=== PATIENT | female | born 1990 | race Caucasian/White ===

== ENCOUNTER 2016-10-17 06:58 | Inpatient (IN) | payer OTHER ==
[~2016-10-17] VITALS: Ht 147.3 cm; Wt 73.9 kg
[2016-10-17] MEDS ORDERED: Lactated Ringer's 1,000 ML IV PRN (07:38)
[2016-10-17] MEDS ORDERED: Sodium Chloride LOK Flush 10 mL Syringe IVFLUSH PRN (07:40)
[2016-10-17] MEDS ORDERED: Carboprost 250 mCg/mL Inj IM PRN (07:40)
[2016-10-17] MEDS ORDERED: Ondansetron 2 mg/mL 2 mL Inj IVPUSH PRN (07:40)
[2016-10-17] MEDS ORDERED: Oxytocin 30 Units/500 mL LR 30 UNITS in IV Premix 1 EACH IV PRN (07:40)
[2016-10-17] MEDS ORDERED: Oxytocin 10 Unit/mL Inj IM PRN (07:40)
[2016-10-17] MEDS ORDERED: diphenhydrAMINE 50 mg Capsule PO PRN (07:40)
[2016-10-17] MEDS ORDERED: Methylergonovine 0.2 mg/mL Inj IM PRN (07:40)
[2016-10-17] MEDS ORDERED: Hemorrhage Kit, Post Partum XX ONE (07:40)
--- NOTE | 2016-10-17 09:11 | PCM.HPOB ---
Subjective Date of Service: Oct 17, 2016 Referring Provider: Admitting Physician: Smita Gandhi MD Primary Care Physician: Jose Raul Jean MD Attending Physician: Smita Gandhi MD Chief Complaint Induction of Labor History of Present History of Present Illness Ms. Scott is a 25 year old at 37 weeks 5 days with NILSA of 11/03/2016 Presents today for induction of labor secondary to induced hypertension and gestational diabetes. Pt is a transfer of care form [place]. Pt has a pertenent past medical history of asthma for which she takes albuterol occasionally and depression for which she used to take Lexapro. Pt states that she has no history of an abnormal PAP, no history of STD or herpes and has no lesions currently. Pt Pt her weight was a little over 7lbs and father of baby (also present in the room) states his weight was 5 pounds. Pt has no reservations against receiving blood products. Blood type is O positive, and GBS negative. At time of dictation Pt 0.0cm dilated, 0%effaced, -1 station. OB History: (1), Para (09) Obstetrical Complications: Gestational Diabetes, Gestational Hypertension Past Medical History Medical History: Per out-patient records Medical history positive for: Depression D (Rh) sensitized Pulmonary (TB, asthma) Seasonal allergies Per out-patient records Infection history negative for: Living with someone with TB or exposed to TB Patient or partner history of genital herpes Rash or viral illness since last menstrual period Hepatitis B, C STI Gonorrhea Chlamydia HPV HIV Syphilis Surgical History: Per Pt she underwent a sinus drainage surgery. Hx Tobacco Use: No Smoking Status: Never Smoker Hx Alcohol Use: No Hx Substance Use: No Past Family History Living Arrangement: with Family Genetic Screening/Counseling Genetic Screening/Counseling: Negative Review of Systems Constitutional: Y: Fever, Weakness Eyes: Denies: Blurred Vision, Double Vision Cardiovascular: Denies: Chest Pain, Palpitations Respiratory: Denies: Cough Gastrointestinal: Denies: Nausea, Vomiting Neurological: Denies: Change in Speech, Dizziness, Numbness, Seizures, Weakness Medications Home medications Albuterol, vitamin Allergy Coded Allergies: No Known Allergies (Unverified , 10/17/16) Exam Vital Signs BP 125/89, HR 93, RR 16, temp 36.9 Exam FHR 130, moderate variability, category 1 tracing. no decelerations, 15x15 accelerations Constitutional: Well-developed, Well-nourished HEENT: Atraumatic, EOMI Lungs: Clear to Auscultation, Normal Air Movement Heart: Exam Unremarkable, Regular Rate/Rhythm Abdomen: Gravid Extremities: No Edema Neurological/Psychiatric: Alert, Oriented X3, Cooperative Neuro: Grossly Neurologically Intact Labs/Diagnostics Maternal Blood Type: O (positive) Hx Rho(D) Immune Globulin: Yes Antibody Screen: negative Group B Strep Results: Negative Rubella: Immune Lab History: Negative for: Hx Gonorrhea, Hx HIV, Hx Herpes, Hx Syphilis Additional Information No information avbailable for Hep C, HIV status, varicella immunity, TSH OB Intrapartum Assessment/Plan Assessment 25 female scheduled induction of labor secondary to PIH and gestational diabetes Problems: (1) Elective induction of labor planned Plan: Continue supportive care, oxytocin given, expectant management. Anticipate vaginal delivery later today or tonight. Status: Acute (2) Gestational diabetes Plan: Pt had not been monitoring blood sugars at home. Will continue to monitor Status: Acute ICD Code: O24.419 (3) 37 weeks gestation of Plan: continue supportive care Status: Acute ICD Code: Z3A.37 (4) Gestational hypertension Permanent Comment: other dx made Last Edited By: Cuco Morel MD on Oct 17, 2016 14:50 Qualifiers: Trimester: unspecified trimester Qualified Code: O13.9 - Gestational [ -induced] hypertension without significant proteinuria, unspecified trimester Plan: Currently hemodynamically stable. Will continue to monitor Status: Acute ICD Code: O13.9 Pain Evaluation: Adequate Pain Control Attending Statement The patient was seen and examined together with Dr. Durbin on 10/17/2016 and I agree with the history, exam and plan as outlined in the note above. Will admit for IOL for GHTN and GDMA1 at 37 weeks gestation. Cervix is closed. Will start with cytotec for cervical ripening. IOL discussed with patient and questions answered./ MD NOEMI Cruz GILES A DO Oct 17, 2016 09:11 Cuco Morel MD Oct 17, 2016 15:11
[2016-10-17] MEDS: Misoprostol 25 mCg/0.25 Tablet VAGINAL SCH ×2 (09:25→13:30)
[2016-10-17 09:34] LABS: Mean Corpuscular Hemoglobin 31.5 pg (27.0-35.0); Mean Corpuscular Volume 91.1 fL (81-100)
[2016-10-17] MEDS ORDERED: PNV91TAB3 PO (10:46)
[2016-10-17] MEDS: Lactated Ringer's 1,000 ML IV SCH ×2 (13:57→23:38)
--- NOTE | 2016-10-17 15:22 | PCM.PNOBIP ---
Subjective Date of Service Oct 17, 2016 Visit History Helen is a 25 y/o G1 at 37w4d with EDC of 11/03/2016 by sure LMP who is admitted today for IOL for GHTN with also complicated by GDMA1 and mild intermittent asthma. Subjective Received 1 dose of cytotec 25mcg vaginal at 9:30am with closed cervix and at 1: 30pm cervix still closed and a second dose placed. Patient continues to be comfortable without complaints. Group B Strep Results: Negative Rubella: Immune Blood Type: O (positive) Labs Laboratory Tests Test 10/17/16 07:53 10/17/16 09:10 Urine Random Creatinine 90mg/dL (16-392) Urine Random Total Protein 52mg/dL (0-15) Urine Protein/Creatinine Ratio 0.58 White Blood Count 11.1th/mm3 (3.8-10.1) Red Blood Count 4.16mil/mm3 (3.90-5.20) Hemoglobin 13.1g/dL (12.0-15.6) Hematocrit 37.9% (35.0-46.0) Mean Corpuscular Volume 91.1fL (81-100) Mean Corpuscular Hemoglobin 31.5pg (27.0-35.0) Mean Corpuscular Hemoglobin Concent 34.6% (32.0-37.0) Red Cell Distribution Width 13.4% (12.3-15.4) Platelet Count 214bil/L (150-400) Sodium Level 135mEq/L (134-144) Potassium Level 4.3mEq/L (3.5-5.2) Chloride Level 100mEq/L (97-108) Carbon Dioxide Level 19mmol/L (18-29) Blood Urea Nitrogen 11mg/dL (6-20) Creatinine 0.77mg/dL (0.57-1.00) Estimat Glomerular Filtration Rate 133mL/min (>59) Glucose Level 95mg/dL (60-99) Calcium Level 9.2mg/dL (8.5-10.1) Total Bilirubin 0.2mg/dL (0.0-1.2) Aspartate Amino Transf (AST/SGOT) 20U/L (0-50) Alanine Aminotransferase (ALT/SGPT) 10U/L (0-32) Alkaline Phosphatase 127U/L (25-150) Total Protein 6.4g/dL (6.4-8.4) Albumin 3.5g/dL (3.4-5.0) Exam Vital Signs Vital Signs Contraction frequency in minutes: MVUs: Vital Signs: VS reviewed, stable (134/85 75 37.0) Heart Tracings Heart Tones Baseline 140 bpm Heart Rate Variability: Moderate Heart Rate Accelleration: Present Heart Rate Deceleration: Absent Heart Rate Category: I Tocometry/IUPC Contraction frequency in minutes:None Sterile Vaginal Exam Cervical Dilation: 0 cm Exam General: Alert, Oriented X3, Cooperative OB Intrapartum Assessment/Plan Assessment Helen is a 25 y/o G1 at 37w4d with EDC of 11/03/2016 by sure LMP who is admitted today for IOL for GHTN, but with elevated PA:CR urine she has preeclampsia without severe features. Serum creatinine is borderline on the high side of normal. Problems: (1) 37 weeks gestation of Status: Acute ICD Code: Z3A.37 (2) Pre-eclampsia affecting , antepartum Plan: IOL - second dose of cytotec given. BPs within normal limits. No severe features. Magnesium prophylaxis not currently indicated. Discussed dx of preeclampsia with patient. Will repeat labs Q12 hours - can reassess frequency of lab draws tomorrow am. No concerns with strip at this time. Status: Acute ICD Code: O14.90 Pain Evaluation: Adequate Pain Control Cuco Morel MD Oct 17, 2016 15:22
--- NOTE | 2016-10-17 19:23 | PCM.PNOBIP ---
Subjective Date of Service Oct 17, 2016 Delivery plan: Spontaneous Vaginal Delivery Visit History Helen is a 25 y/o G1 at 37w4d with EDC of 11/03/2016 by sure LMP who is admitted today for IOL for preeclampsia and complicated by GDMA1 and mild intermittent asthma. Subjective Received 2 doses of cytotec 25mcg vaginally, one at 9:30am, next at 1:30pm. Patient is still comfortable feeling some cramping. Group B Strep Results: Negative Rubella: Immune Blood Type: O (positive) Labs Laboratory Tests 10/17/16 09:10: White Blood Count 11.1, Red Blood Count 4.16, Hemoglobin 13.1, Hematocrit 37.9, Mean Corpuscular Volume 91.1, Mean Corpuscular Hemoglobin 31.5, Mean Corpuscular Hemoglobin Concent 34.6, Red Cell Distribution Width 13.4, Platelet Count 214 Exam Vital Signs Vital Signs Contraction frequency in minutes: MVUs: Vital Signs: VS reviewed, stable Heart Tracings Heart Tones Baseline bpm Heart Rate Category: I Tocometry/IUPC Contraction frequency in minutes: MVUs: Sterile Vaginal Exam Cervical Dilation: 1 cm Cervical Effacement: 50 % Station: -3 Exam General: Alert, Oriented X3, Cooperative OB Intrapartum Assessment/Plan Assessment Helen is a 25 y/o G1 at 37w4d with EDC of 11/03/2016 by sure LMP who is admitted today for IOL for preeclampsia and complicated by GDMA1 and mild intermittent asthma. Problems: (1) 37 weeks gestation of Status: Acute ICD Code: Z3A.37 (2) Pre-eclampsia affecting , antepartum Plan: -BPs elevated, but no need to treat. No signs of severe disease at this time. No magnesium currently indicated. -Cervical ripening balloon placed. Status: Acute ICD Code: O14.90 Pain Evaluation: Adequate Pain Control Cuco Morel MD Oct 17, 2016 19:23
[2016-10-17] MEDS: fentaNYL-PF 50 mCg/mL 2 mL Inj IVPUSH PRN ×3 (19:36→21:12)
[2016-10-17 22:36] LABS: Mean Corpuscular Hemoglobin 31.2 pg (27.0-35.0); Mean Corpuscular Volume 91.7 fL (81-100)
[2016-10-18] MEDS: Lactated Ringer's 1,000 ML IV SCH (02:29)
[2016-10-18 08:37] LABS: Mean Corpuscular Volume 91.3 fL (81-100)
--- NOTE | 2016-10-18 10:31 | PCM.PNOBIP ---
Subjective Date of Service Oct 18, 2016 Delivery plan: Spontaneous Vaginal Delivery Subjective 25 year old now at 37 weeks 5 days gestation with NILSA of 11/03/2016 was admitted to the [facility] October 17 2016 for induction of labor secondary to induced hypertension and gestational diabetes. Patient has no severe features of her preeclampsia at this time. Induction of labor has consisted of use of Cytotec and balloon catheter dilation. She is not experiencing headache, epigastric pain, or vision changes. Labs fingerstick glucose readings in the high 60's. Group B Strep Results: Negative Rubella: Immune Blood Type: O (positive) Labs Laboratory Tests 10/18/16 08:18: White Blood Count 16.9, Red Blood Count 4.16, Hemoglobin 12.9, Hematocrit 38.0, Mean Corpuscular Volume 91.3, Mean Corpuscular Hemoglobin 31.0, Mean Corpuscular Hemoglobin Concent 33.9, Red Cell Distribution Width 13.6, Platelet Count 218 Exam Vital Signs Vital Signs BP 139/81 HR 100 R 20 T 36.3 Vital Signs: VS reviewed, stable Heart Tracings Heart Tones Baseline 140 bpm Heart Rate Variability: Moderate Heart Rate Accelleration: Present Heart Rate Deceleration: Absent Heart Rate Category: I Tocometry/IUPC Contraction frequency in minutes: 6-9 Sterile Vaginal Exam Performed by Dr. Cuco Morel Cervical Dilation: 1 cm Cervical Effacement: 50 % Station: -3 Exam Abdomen: Fundus firm Extremities: Edema 1+ Lungs: Clear to Auscultation, Normal Air Movement Heart: Regular Rate/Rhythm, No Murmurs/Rubs/Gallops General: Alert, Oriented X3, Cooperative OB Intrapartum Assessment/Plan Assessment 25 year old now at 37 weeks 5 days gestation with NILSA of 11/03/2016 was admitted to the [facility] October 17 2016 for induction of labor secondary to induced hypertension and gestational diabetes. She has elevated creatinine for and an elevated protein creatinine ratio therefore preeclamptic without any severe features and not requiring magnesium at this time. Liver and Kidney function remain stable. Patient has had mild cervical changes with Cytotec and balloon dilation. Problems: (1) 37 weeks gestation of Status: Acute ICD Code: Z3A.37 (2) Pre-eclampsia affecting , antepartum Plan: -BPs elevated, but no need to treat. No signs of severe disease at this time. No magnesium currently indicated. -Cervical ripening balloon removed. -We will start Cervidil this morning to continue cervical ripening. Status: Acute ICD Code: O14.90 Intrapartum plan: Continue expected management Pain Evaluation: Adequate Pain Control Post plan: Continue routine post care SHERYL RADER DO Oct 18, 2016 09:52
[2016-10-18 22:59] LABS: Mean Corpuscular Volume 92.4 fL (81-100)
--- NOTE | 2016-10-19 07:53 | PCM.PNOBIP ---
Subjective Date of Service Oct 19, 2016 Delivery plan: Spontaneous Vaginal Delivery Subjective 25 year old now at 37 weeks 6 days gestation with NILSA of 11/03/2016 was admitted to the [facility] October 17 2016 for induction of labor secondary to induced hypertension and gestational diabetes. Patient has no severe features of her preeclampsia at this time. Induction of labor has consisted of use of Cytotec, balloon catheter dilation, and Cervidil. Cervidil was removed 10/18/16 at 21:16 cervical check at that time was 4 cm /80% effaced / -2 station, soft and posterior. She is not experiencing headache, epigastric pain, or vision changes. She is still ambulating occasionally. her contractions have spaced out and she has been feeling them less. Pain Management: IV Push Gastrointestinal: No N/V, Passing Flatus Activity: Ambulating Independently Group B Strep Results: Negative Rubella: Immune Blood Type: O (positive) RH Type: Positive Labs Laboratory Tests 10/18/16 22:45: White Blood Count 17.5, Red Blood Count 3.94, Hemoglobin 12.2, Hematocrit 36.4, Mean Corpuscular Volume 92.4, Mean Corpuscular Hemoglobin 31.0, Mean Corpuscular Hemoglobin Concent 33.5, Red Cell Distribution Width 13.7, Platelet Count 222 Exam Vital Signs Vital Signs Contraction frequency in minutes: MVUs: Vital Signs: VS reviewed, stable Heart Tracings Heart Tones Baseline 130 bpm Heart Rate Variability: Moderate Heart Rate Accelleration: Present Heart Rate Deceleration: Absent Heart Rate Category: I Tocometry/IUPC Contraction frequency in minutes: infrequent Sterile Vaginal Exam Cervical Dilation: 1 cm Cervical Effacement: 50 % Station: -3 Exam Abdomen: Fundus firm Extremities: Edema 1+ Lungs: Clear to Auscultation, Normal Air Movement Heart: Regular Rate/Rhythm, No Murmurs/Rubs/Gallops General: Alert, Oriented X3, Cooperative OB Intrapartum Assessment/Plan Assessment 25 year old now at 37 weeks 6 days gestation with NILSA of 11/03/2016 was admitted to the [facility] October 17 2016 for induction of labor secondary to induced hypertension and gestational diabetes. Patient has no severe features of her preeclampsia at this time. Patient doing well, pain well controlled. Problems: (1) 37 weeks gestation of Status: Acute ICD Code: Z3A.37 (2) Pre-eclampsia affecting , antepartum Plan: -BPs elevated, but no need to treat. No signs of severe disease at this time. No magnesium currently indicated. -Cervidil was removed last night. -Start Pitocin this morning to continue with induction of labor. Status: Acute ICD Code: O14.90 Intrapartum plan: Continue expected management Intrapartum Pain Management: May have epidural when desired, IV Fentanyl Pain Evaluation: Adequate Pain Control Post plan: Continue routine post care Attending Statement She is doing well this AM, induction on hold overnight due to nurse staffing issues. This AM her cervix is 4/90/-1, Pitocin started and SROM occurred this AM with return of clear fluid. Epidural was placed at her request. Difficulty tracing contractions was noted on tocometry so IUPC was placed with prolonged decel to 80's following this and with hypotension s/p epidural, FSE also placed. BP now WNL. Now FHT category 2: 140's/minimal to moderate variability/ occasional variable and rare late decelerations. Pitocin on at 4mu, decreased after prolonged deceleration. Contraction pattern irregular with coupling and tripling. Continue expectant management with position changes at this time. SHERYL RADER DO Oct 19, 2016 07:34 Smita Gandhi MD Oct 19, 2016 12:53
[2016-10-19] MEDS: Lactated Ringer's 1,000 ML IV SCH ×4 (08:06→23:19)
[2016-10-19 09:11] LABS: Mean Corpuscular Hemoglobin 31.3 pg (27.0-35.0)
[2016-10-19] MEDS ORDERED: fentaNYL 2 mCg/mL-Bupivicaine 0.125% 100 mL Premix EPIDURAL ONE (09:54)
[2016-10-19] MEDS ORDERED: Lactated Ringer's 500 ML IV PRN (09:57)
[2016-10-19] MEDS ORDERED: Lactated Ringer's 1,000 ML IV SCH ×2 (09:57→17:30)
[2016-10-19] MEDS ORDERED: Dexamethasone 4 mg/mL Inj IVPUSH PRN (10:00)
[2016-10-19] MEDS ORDERED: Phenylephrine 10,000 mCg/mL Inj IVPUSH PRN (10:00)
[2016-10-19] MEDS ORDERED: fentaNYL-PF 50 mCg/mL 2 mL Inj IVPUSH PRN (10:00)
[2016-10-19] MEDS ORDERED: Labetalol 5 mg/mL 4 mL Inj IV PRN (10:00)
[2016-10-19] MEDS ORDERED: EPHEDrine Sulfate 50 mg/mL Inj IVPUSH PRN ×2 (10:00→17:30)
[2016-10-19] MEDS ORDERED: MetoCLOpramide 5 mg/mL 2 mL Inj IVPUSH PRN (10:00)
[2016-10-19] MEDS ORDERED: HYDROmorphone 1 mg/mL Inj IVPUSH PRN (10:00)
[2016-10-19] MEDS ORDERED: Ondansetron 2 mg/mL 2 mL Inj IVPUSH PRN ×2 (10:00→17:30)
--- NOTE | 2016-10-19 10:00 | PCM.HPANE ---
Patient Data Surgeon Admitting Provider:Smita Gandhi MD Attending Provider:Smita Gandhi MD Primary Care Physician:Jose Raul Jean MD Other Provider:Ramona Carnes Anesthesia Reason for Visit Induction INDUCTION Ht/WT & BMI Body Mass Index Allergies Coded Allergies: No Known Allergies (Unverified , 10/17/16) Medications Hypertension Medication: No Home Meds Incl Beta Kishore: No Reported Medications Pnv95/Ferrous Fumarate/FA ( Caplet)28 Mg Iron-800 Mcg Tablet1 Each PO 10/17/16 History Hx of Heart Problems?: Yes Cardiovascular History: Positive for:: Hypertension Hx of Respiratory Problem?: No Hx of GI Problems?: Yes Gastrointestinal History: Positive for:: Heartburn Female Hx: Positive for:: Currently Hx Surgeries?: Yes Hx Alcohol Use: NoHx Substance Use: No Smoking Status: Never Smoker Stop/Bang Treated for Sleep Apnea?: No Do You Have a CPAP Machine?: No IRVING Risk Assessment: Low Risk, <3 Yes Risk Assessment Category Category 1A: Patient has history of documented sleep apnea, and HAS NOT received any narcotic, sedative or anesthesia administration during this stay. Category 1B: Patient has history of documented sleep apnea, and HAS received any narcotic , sedative or anesthesia administration during this stay Category 2: Patient has SUSPECTED Obstructive Sleep Apnea, and HAS received any narcotic , sedative or anesthesia administration during this stay. Category 3: Patient has SUSPECTED Obstructive Sleep Apnea and HAS NOT received narcotic, sedative or anesthesia administration during this stay. Category 4: Outpatient in Procedural Areas with known sleep apnea or who screen positive for High Risk via the STOP/BANG questionnaire. Exam Exam General Appearance: Oriented X3 HEENT/AIRWAY: MP 2 Lungs: Normal Air Movement Heart: Regular Rate/Rhythm Meds/Labs/Diagnostics Labs Test 10/17/16 07:53 10/19/16 08:50 Urine Random Creatinine 90mg/dL (16-392) Urine Random Total Protein 52mg/dL (0-15) Urine Protein/Creatinine Ratio 0.58 White Blood Count 16.2th/mm3 (3.8-10.1) Red Blood Count 3.86mil/mm3 (3.90-5.20) Hemoglobin 12.1g/dL (12.0-15.6) Hematocrit 35.9% (35.0-46.0) Mean Corpuscular Volume 93.0fL (81-100) Mean Corpuscular Hemoglobin 31.3pg (27.0-35.0) Mean Corpuscular Hemoglobin Concent 33.7% (32.0-37.0) Red Cell Distribution Width 13.8% (12.3-15.4) Platelet Count 190bil/L (150-400) Plan Impression Patient chart reviewed, patient interviewed and anesthestic plan with risks, benefits, and alternatives discussed, and informed consent obtained. ASA Physical Status: ASA3 Severe Disease Anesthetic Plan: Epidural Bene/Risks/Altern/Consents: Yes HP Complete Prior to Induction: Yes Duke Israel MD Oct 19, 2016 10:00
[2016-10-19] MEDS ORDERED: Dextrose 5% Lactated Ringer's 1,000 ML IV ONE (15:32)
[2016-10-19] MEDS ORDERED: DEXTROSE 5% IV ONE (15:45)
[2016-10-19] MEDS ORDERED: LACTATED RINGER S IV ONE (15:45)
--- NOTE | 2016-10-19 17:26 | PCM.PNOBIP ---
Subjective Date of Service Oct 19, 2016 Delivery plan: Spontaneous Vaginal Delivery Subjective Doing OK, was up to 14 of pitocin, patient began having recurrent late decels so pitocin was turned off, 02 given and patient repositioned. Also gave IVF bolus. Comfortable with epidural. Pain Management: Epidural Group B Strep Results: Negative Rubella: Immune Blood Type: O (positive) RH Type: Positive Labs Laboratory Tests 10/19/16 08:50: White Blood Count 16.2, Red Blood Count 3.86, Hemoglobin 12.1, Hematocrit 35.9, Mean Corpuscular Volume 93.0, Mean Corpuscular Hemoglobin 31.3, Mean Corpuscular Hemoglobin Concent 33.7, Red Cell Distribution Width 13.8, Platelet Count 190 Exam Vital Signs Vital Signs Contraction frequency in minutes: MVUs: Vital Signs: VS reviewed, stable (BP not elevated) Heart Tracings Heart Tones Baseline 150/minimal to moderate/ + accel with scalp stimulation, no decels currently. bpm Tocometry/IUPC Q6-8, MVU inadequate with pitocin off <100 Sterile Vaginal Exam Cervical Dilation: 5 cms Cervical Effacement: 80 % Station: -2 Exam Abdomen: Fundus firm General: Oriented X3 OB Intrapartum Assessment/Plan Problems: (1) 37 weeks gestation of Plan: Continue resuscitation with IVF, 02 and position changes. Plan to restart pitocin after 30 minutes of category 1 strip. Good scalp stimulation present on examination. BP nonsevere. Continue expectant management, patient not yet in active labor. Status: Acute ICD Code: Z3A.37 (2) Pre-eclampsia affecting , antepartum Status: Acute ICD Code: O14.90 Intrapartum plan: Continue expected management Pain Evaluation: Adequate Pain Control Smita Gandhi MD Oct 19, 2016 17:26 Smita Gandhi MD Oct 19, 2016 17:26 Smita Gandhi MD Oct 19, 2016 17:26
[2016-10-19] MEDS ORDERED: Phenylephrine/NS-PF 100 mCg/mL 5 mL Syringe IVPUSH PRN (17:30)
[2016-10-19] MEDS ORDERED: Atropine 1 mg/10 mL (Code) Syringe IVPUSH PRN (17:30)
[2016-10-19] MEDS ORDERED: Lactated Ringer's 500 ML IV ONE (17:30)
[2016-10-19] MEDS: fentaNYL 2 mCg/mL-Bupiv 0.125% 100 ML EPIDURAL SCH ×2 (17:40→22:41)
[2016-10-20] MEDS: Sodium Chloride LOK Flush 10 mL Syringe IVFLUSH SCH ×3 (00:30→16:30)
[2016-10-20] MEDS ORDERED: Lactated Ringer's 1,000 ML IV SCH (04:40)
--- NOTE | 2016-10-20 05:35 | PROG NOTE ---
[address] [address] PROGRESS NOTE PATIENT: DAVID WANG : 1990 MR#: [id number] ADMIT: 10/17/2016 JOB ID: [id number] DATE: 10/20/2016 SUBJECTIVE: The patient was admitted on October 17 for induction of labor secondary to preeclampsia. Currently comfortable with epidural, had episodes of category 2 heart tracing at that resolved. Pitocin was restarted currently at 6 susan-international units of Pitocin per minute. OBJECTIVE: Vital signs are 133/70 for blood pressure, pulse is 109, temperature 36.8 degrees centigrade. Cervical exam: 8 cm dilated cervix, 90% effaced, -1 station, vertex presentation with light meconium obtained on exam. Intrauterine pressure catheter and scalp electrode are in place, were inserted earlier Dr. Gandhi. The heart tracing showing a baseline of 150 beats per minute. Positive accelerations after the scalp stimulation by myself. Early decelerations, moderate variability with prior episodes of minimal variability. At the time of my examination, the tracing was category 1, was previously category 2 due to minimal variability with episodes of category 2 for minimal variability. Some infrequent variable decelerations resolved as well. There was some late decelerations around 5 p.m. yesterday that also resolved. ASSESSMENT AND PLAN: Patient is 25-year-old, 1, para 0, at 37 weeks and 5 days gestational age, admitted for induction of labor secondary to preeclampsia. 1. Labor progressing well. Continue with current low dose Pitocin regimen. 2. Epidural is adequate for pain control. 3. Category 1 heart tracing currently with episodes of category 2. Continue with intrauterine resuscitation measures as needed. 4. GBS cultures are negative. All the above was discussed in details with the patient who agreed to the plan. YONATHAND
[2016-10-20] MEDS: fentaNYL 2 mCg/mL-Bupiv 0.125% 100 ML EPIDURAL SCH (06:27)
[2016-10-20] MEDS: Lactated Ringer's 1,000 ML IV SCH ×3 (08:05→17:21)
[2016-10-20] MEDS ORDERED: LANOlin HPA 7 Gm Ointment TOPICAL PRN (09:25)
[2016-10-20] MEDS ORDERED: Oxytocin 30 Units/500 mL LR 30 UNITS in IV Premix 1 EACH IV PRN (09:25)
[2016-10-20] MEDS ORDERED: Benzocaine (Dermoplast) 20% 60 Gm Spray TOPICAL PRN (09:25)
[2016-10-20] MEDS ORDERED: Hemorrhage Kit, Post Partum XX ONE (09:25)
[2016-10-20] MEDS ORDERED: Methylergonovine 0.2 mg/mL Inj IM PRN (09:25)
[2016-10-20] MEDS ORDERED: Carboprost 250 mCg/mL Inj IM PRN (09:25)
[2016-10-20] MEDS ORDERED: Oxytocin 10 Unit/mL Inj IM PRN (09:25)
[2016-10-20] MEDS: Witch Hazel-Glycerin Pads TOPICAL PRN (10:43)
[2016-10-20] MEDS ORDERED: DEXTROSE 5% IV SCH (10:45)
[2016-10-20] MEDS ORDERED: GENTAMICIN IV SCH (10:45)
[2016-10-20] MEDS: Ampicillin 2,000 mg/100 mL NS Minibag Plus IV SCH ×4 (11:37→18:00)
[2016-10-20 12:22] LABS: APPEARANCE,URINE HAZY (CLEAR,HAZY); COLOR,URINE YELLOW (YELLOW); OCCULT BLOOD,URINE LARGE (NEGATIVE)
[2016-10-20 12:24] LABS: UROBILINOGEN,URINE NORMAL (NORMAL)
[2016-10-20] MEDS: Clindamycin 900 mg/50 mL D5W IV SCH ×2 (14:29→22:50)
[2016-10-21] MEDS: Ampicillin 2,000 mg/100 mL NS Minibag Plus IV SCH ×6 (00:12→12:23)
[2016-10-21] MEDS: Sodium Chloride LOK Flush 10 mL Syringe IVFLUSH SCH ×3 (00:30→16:30)
[2016-10-21] MEDS: Lactated Ringer's 1,000 ML IV SCH ×3 (01:21→17:21)
--- NOTE | 2016-10-21 04:51 | OP ---
[address] [address] OPERATIVE REPORT PATIENT: DAVID WANG : 1990 MR#: [id number] ADMIT: 10/17/2016 JOB ID: [id number] DATE OF SURGERY: 10/20/2016 DELIVERY NOTE: A 25-year-old female 1, para 1 now. She was admitted to [facility] for induction of labor for gestational diabetes and preeclampsia without severe features. She has been induced for 3-4 days and her membranes ruptured about 10 a.m. on October 19, 2016. She started going into labor yesterday and she was noticed to fully dilated and had urge to push at 6 o'clock this morning. My shift started at 7 o'clock this morning. The signing out I got from previous shift was that she has no fever and she has difficult to evaluate tracing and was no strong indication for section. When I presented at around 7:15, I examined the patient. She was fully dilated. The station was at about 0 to +1 station. The position was at CRISPIN position. heart tracing was baseline at 155, minimal variability. Recurrent decelerations by my evaluation is more like late decelerations. The decelerations started at the peak of the contractions and stopped as a similar time when the contractions stopped and they are shallow and gradually decelerating and gradually increasing to baseline. The mother's blood pressure was in normal range. She is having an amnioinfusion. During examination, I noted the amniotic fluid was dark green colored. Her contraction was every 6-8 minutes. Her Pitocin was 2 units. At that time, I discussed with the patient that the heart tracing is not reassuring. I will watch her pushing and decide at this time whether I will allow her to continue with labor or having to do a . The patient, although her contraction was every 6-8 minutes, she has good effort to push. With pushing, I can notice the descent of head. Discussed with patient that I will shortly observe for 20-30 minutes. At the same time, we will put the patient on her side, give IV fluid bolus. At 20-30 minutes, will see whether there is improving of heart tracing, whether there is descent of head. At that time, we have to make a final decision of the delivery mode. I came back, examined the patient again in about 30 minutes. At this time, the heart tracing was still non-reassuring, baseline at 155-160, minimal variability with multiple late decels and at this time the head station was descending to +1 to +2 and with pushing it came down to +2. I discussed with the patient that for a non-reassuring heart tracing I have to deliver the baby now. By evaluation, I think there is a high chance of successful vaginal delivery by vacuum but if that fails, then we will have to go to do a section to deliver the baby at time. Discussed patient about the indications, benefits, risks of vacuum delivery and . The patient agreed with the plan. During this process, there were multiple temperatures taken from mother. There was no fever noted. The patient subjectively feels warm. after vaginal examination, decision was made for vacuum delivery. The help desk coordinator was informed to standby and history discussed. The patient had good effort to push and at this time the IPC and FSE removed. The PV vacuum placed on the 's head between the anterior and the posterior fontanels close the posterior fontanel and at the same time Pitocin was increased gradually from 2 to 8 units. At this time, her contraction much better to every 3-4 minutes. With pushing, steady effort was used with the vacuum. The vacuum pressure was at the green zone. The head delivered with four pushing with no slip. Then, the vacuum removed. The shoulder and chest delivered without difficulty. After the delivery, the was very soft and the amniotic fluid was foul smelling. The cord clamped and cut. The infant was handed to the awaiting help desk coordinator. Cord blood gas collected. The placenta delivered spontaneously, completely examined with three-vessel cord. After the placenta was delivered, fundal massage and Pitocin started. The uterus was still quite soft and with active bleeding. 800 mg of Cytotec was per rectal and continuous manual massage and Pitocin. The uterus became firm and the bleeding stopped. The perineum examined. There was noticed about 2-3cmof vaginal sulcus on the posterior area. No perineum lacerations. This sulcus was reparied with 2-0 Vicryl suture and hemostasis achieved. The EBL during the delivery was about 300 cc. All instruments, needles, laps and gauze was correct twice and after delivery, there was a fever noticed for the fetus and the mother's still subjectively felt hot, although no fever was noticed by multiple temperatures. At this time, we will closely monitor the mother's blood pressure and temperature. If there is any fever, we will plan to start antibiotics. SURGEON: PREOPERATIVE DIAGNOSIS(ES): POSTOPERATIVE DIAGNOSIS(ES): MTDD
[2016-10-21 06:32] LABS: Mean Corpuscular Hemoglobin 31.4 pg (27.0-35.0); Mean Corpuscular Volume 93.5 fL (81-100)
[2016-10-21] MEDS: Clindamycin 900 mg/50 mL D5W IV SCH (07:54)
--- NOTE | 2016-10-21 15:19 | PCM.PNOBPP ---
Subjective Date of Service Oct 21, 2016 Post : Spontaneous Vaginal Delivery Subjective 25 year old at 37 weeks 5 days gestation with NILSA of 11/03/2016 was admitted to the [facility] October 17 2016 for induction of labor secondary to induced hypertension and gestational diabetes. Patient has had no severe features of her preeclampsia. She delivered via vacuum assisted vaginal delivery at 0855 on 10/19/2016. Since that time patient has been doing well She has not had any fevers or chills, no Headache, vision changes, or epigastric pain. She is urinating, passing gas, and walking on her own. Lochia: Normal Pain Management: PO pain meds, Epidural Gastrointestinal: No N/V, Passing Flatus, Normal Bowel Movement Postop Activity: Ambulating Independently Group B Strep Results: Negative Rubella: Immune Blood Type: O (positive) RH Type: Positive Labs Laboratory Tests 10/21/16 05:45: White Blood Count 23.9, Red Blood Count 3.09, Hemoglobin 9.7, Hematocrit 28.9, Mean Corpuscular Volume 93.5, Mean Corpuscular Hemoglobin 31.4, Mean Corpuscular Hemoglobin Concent 33.6, Red Cell Distribution Width 13.7, Platelet Count 159 Exam Vital Signs Vital Signs BP 112/72 HR 97 R 16 Temp 36.8 Vital Signs: VS reviewed, stable Exam Abdomen: Fundus firm : Voiding without difficulty Extremities: Edema 1+ Lungs: Clear to Auscultation, Normal Air Movement Heart: Regular Rate/Rhythm, No Murmurs/Rubs/Gallops General: Alert, Oriented X3, Cooperative, No Acute Distress OB Post Assessment/Plan Assessment 25 year old at 37 weeks 5 days gestation with NILSA of 11/03/2016 was admitted to the [facility] October 17 2016 for induction of labor secondary to induced hypertension and gestational diabetes. Patient has had no severe features of her preeclampsia. She delivered via vacuum assisted vaginal delivery at 0855 on 10/19/2016. She received 24 hours of Ampicillin, gentamicin, and clindamycin. Problems: (1) Vaginal delivery Plan: Routine care Status: Acute ICD Code: O80 (2) 37 weeks gestation of Status: Resolved ICD Code: Z3A.37 (3) Pre-eclampsia affecting , antepartum Plan: Continue to monitor blood pressures and for signs of preeclampsia worsening . Status: Acute ICD Code: O14.90 (4) Chorioamnionitis, delivered, current hospitalization Plan: 24 hours of Ampicillin, gentamicin, and Clindamycin. Monitor for 24 hours after discontinuation of antibiotics. Status: Acute ICD Code: O41.1290 Pain Management: Ibuprofen Pain Evaluation: Adequate Pain Control Post plan: Continue routine post care Plan: Continue to monitor for signs of infection and preeclampsia Attending Statement The patient was seen and examined together with Dr. Red on 10/21/2016 and I agree with the history, exam and plan as outlined in the note above. / MD PRASANTH Cruz ERIKA R DO Oct 21, 2016 14:13 Cuco Morel MD Nov 09, 2016 17:07
[2016-10-21] MEDS: Witch Hazel-Glycerin Pads TOPICAL PRN (20:25)
[2016-10-22] MEDS: Sodium Chloride LOK Flush 10 mL Syringe IVFLUSH SCH ×2 (00:30→08:30)
[2016-10-22] MEDS: Lactated Ringer's 1,000 ML IV SCH ×2 (01:21→09:21)
[2016-10-22 07:17] LABS: BASOPHILS % (AUTO) 0.1 % (0-3); EOSINOPHILS % (AUTO) 0.9 % (0-5); MONOCYTES % (AUTO) 4.7 % (4-12); Mean Corpuscular Hemoglobin 31.1 pg (27.0-35.0); Mean Corpuscular Volume 93.1 fL (81-100); NEUTROPHILS % (AUTO) 77.3 % (40-74); Platelet Count 200 bil/L (150-400)
--- NOTE | 2016-10-22 07:59 | PCM.ANEP2 ---
Post Anesthesia Evaluation ASA/CMS Post Anesthesia VS in Patient's Normal Range?: Yes Resp Stable; Airway Patent?: Yes CV Function & Hydration Stable: Yes Mental Status Recovered?: Yes Pain control Satisfactory?: Yes N/V Control Satisfactory?: Yes Mindy Boyer DO Oct 22, 2016 07:59
--- NOTE | 2016-10-22 07:59 | PCM.ANEP1 ---
Post Anesthesia Phase 1 PACU Phase 1 Assessment Date of Service: Oct 17, 2016 Anesthetic Administered: Epidural Level of Alertness: Awake, talking HERNANDEZ's with Equal Strength: Yes Pain: No Pain Scale Score: 5 Nausea or Vomiting: No Oxygen Delivery: Room Air Lungs: Clear to Auscultation, Normal Air Movement Mindy Boyer DO Oct 22, 2016 07:59
--- NOTE | 2016-10-22 11:31 | PCM.DIOB ---
Obstetrical Disch Instruction Dates of Hospitalization Date of Hospital Admission Oct 17, 2016 at 06:58 Providers Admitting Physician: Smita Gandhi MD Primary Care Physician: Jose Raul Jean MD Attending Physician: Smita Gandhi MD Discharge Diagnosis Problems: (1) Vaginal delivery Status: Acute ICD Code: O80 (2) 37 weeks gestation of Status: Resolved ICD Code: Z3A.37 (3) Pre-eclampsia affecting , antepartum Status: Acute ICD Code: O14.90 (4) Chorioamnionitis, delivered, current hospitalization Status: Acute ICD Code: O41.1290 Diet Discharge Diet: No restrictions Activity Discharge Activity-General: Pelvic Rest for 6 weeks, Try not to overdue, Balance rest and activity, No lifting >10 pounds for 4-6 weeks Dressing and Incisional Care Hygiene: May shower, NO bathtub, hot tub or whirlpool Additional Instructions Discharge Instructions Please call office or go to ER if heavy vaginal delivery, severe abdominal pain , foul smelling discharge, fever more than 100.4 Follow Up Plan Follow Up Plan SRC 6 weeks after delivery Follow-up appointment: Weeks (6) Call your provider for: Fever or Chills, Shortness of breath, Heavy vaginal bleeding, Vaginal discomfort Cynthia Correa MD Oct 22, 2016 11:31
[2016-10-22] MEDS ORDERED: IBUP-1827 PO (12:37)
[2016-10-22 13:27] VITALS: BP 138/81; PULSE 88; RESP 18
--- NOTE | 2016-10-22 19:16 | DIS ---
[address] [address] DISCHARGE SUMMARY PATIENT: DAVID WANG : 1990 MR#: [id number] ADMIT: 10/17/2016 JOB ID: [id number] DIS: 10/22/2016 This is a 35-year-old female. She is 1, para 1, now admitted for induction of labor for type 2 diabetes and preeclampsia. She delivered as vacuum assisted vaginal delivery. She had one fever after delivery. Triple antibiotic was started. She has not noted any fever afterwards. She is doing well after delivery. She is drinking, eating well, voiding well. Pain is well controlled. Ambulating well. PHYSICAL EXAMINATION: She has been afebrile for 24 hours. The antibiotics stopped at 3 p.m. yesterday. She has had no fever ever since and her abdomen is soft. Uterus is well contracted and nontender. Extremities nontender. Lochia is moderate to minimal. ASSESSMENT AND PLAN: This is a 25-year-old female, 1, para 1, status post vacuum-assisted vaginal delivery. Doing well. Antibiotics and stopped about close to 24 hours-afebrile. PLAN: To discharge her home today. The patient is instructed to call office or go to the ED if heavy vaginal bleeding, severe abdominal pain, foul-smelling discharge, and fever more than 100.4. She is instructed to follow up at office in six weeks after delivery. I discussed about control. I will prescribe her Motrin 600 mg q.6 h. hours for 30 pills, no refills. YONATHAND
--- NOTE | 2016-10-23 16:29 | PATH ---
SURGICAL PATHOLOGY Attending Physician:Cynthia Correa MD CASE STATUS: Signed Out PATIENT NAME: DAVID WANG PID: [id number] : 1990 DATE COLLECTED:10/20/2016 16:58 SPECIMEN: Placenta CLINICAL HISTORY: R/O CHORIOAMNIONITIS Term , ruptured 22.5 hours 1). PLACENTA FINAL DIAGNOSIS: 1.PLACENTA: ACUTE CHORIOAMNIONITIS AND ACUTE FUNISITIS. SMALL PLACENTAL SIZE FOR GESTATIONAL AGE (LESS THAN 10TH PERCENTILE FOR TERM ). ICD10 CODE O41.10 GROSS DESCRIPTION: The specimen is received in formalin, labeled with the patient's name and consists of an intact placenta and includes placental disc (362 g, 17.4 X 14.5 X 2.7 cm), stump of umbilical cord (length-0.8 cm, diameter-2.2 x 1.2 cm) and membranes. The membranes are ruptured 8.2 cm from the free edge of the placenta and are translucent. The umbilical cord is attached 4.2 cm from the edge of the placenta and contains 3 vessels. The surface is smooth and shiny and contains a depressed hemorrhagic area (3.0 x 2.5 x 0.3 cm) located 5.9 cm from the umbilical cord insertion. No evidence of meconium is identified. The maternal surface is dark maroon with normal cotyledon formation. The placental disc is spongy with no hematomas, infarcts, nodules, masses, or lesions. Section code: (A) edge of placenta with membranes, umbilical cord; (B-C) placenta, 1 full thickness section with hemorrhagic area, largest dimension submitted; (D-E, F, G) placenta, 3 full thickness sections. 10/21/16 JM MICRO DESCRIPTION: See diagnosis. ICD-9 CODES: CPT CODES: 1: 43274 Electronically Signed Out Kaye Zhou MD [facility] Pathology [facility] [address], [place] [address] Technical component performed at [facility], [facility] [address], [place], [address]
== END 2016-10-22 14:21 | disposition home or self-care (01) | DRG 775 ==
LOC: FBC 06:58
PROVIDERS: ADMIT Obstetrics & Gynecology; ATTEND Obstetrics & Gynecology
PROC: 3E0P7GC Introduction of Other Therapeutic Substance into Female Reproductive, Via Natural or Artificial Opening (ICD-10-PCS; 2016-10-17)
PROC: 10H073Z Insertion of Monitoring Electrode into Products of Conception, Via Natural or Artificial Opening (ICD-10-PCS; 2016-10-19)
PROC: 10D07Z6 Extraction of Products of Conception, Vacuum, Via Natural or Artificial Opening (ICD-10-PCS; principal; 2016-10-20)
PROC: 0UQGXZZ Repair Vagina, External Approach (ICD-10-PCS; 2016-10-20)
DX: O13.3 Gestational [pregnancy-induced] hypertension without significant proteinuria, third trimester (principal); O41.1230 Chorioamnionitis, third trimester, not applicable or unspecified; Z3A.37 37 weeks gestation of pregnancy; O24.429 Gestational diabetes mellitus in childbirth, unspecified control; O14.94 Unspecified pre-eclampsia, complicating childbirth; Z37.0 Single live birth; O71.82 Other specified trauma to perineum and vulva; O77.0 Labor and delivery complicated by meconium in amniotic fluid